=== PATIENT | female | born 1980 | race Caucasian/White ===

== ENCOUNTER → 2016-12-13 | Outpatient (CLI) | payer OTHER ==
[~2016-12-13] MED LIST: IBUP-1114 PO
--- NOTE | 2016-12-13 12:47 | REP ---
REASON: Assess for IUD placement. PRIORS: None. Transvesical and transvaginal imaging was obtained. The uterus measures 9.7 x 5.1 x 7. 1 cm. The parenchymal echo pattern is within normal limits. Within the uterus, there is a specular reflection consistent with an IUD. Incidental note is made of the nabothian cyst. Right ovary measures 2.9 x 1.8 x 2.2 cm and is within normal limits. Left ovary measures 2.3 x 1.4 x 1.9 cm and is within normal limits. The urinary bladder measures 7 x 6 x 8 cm. IMPRESSION: There is an IUD in place. The exam is unremarkable. Signed by Juve Yung DO 12/13/2016 01:58 P
== END ==
LOC: M RAD 11:13
PROVIDERS: ATTEND Student in an Organized Health Care Education/Training Program
DX: Z30.431 Encounter for routine checking of intrauterine contraceptive device (principal)

== ENCOUNTER 2017-01-15 10:22 | Day surgery (SDC) | payer OTHER ==
[~2017-01-15] VITALS: Ht 167.6 cm; Wt 88.5 kg
[~2017-01-15 10:22] MED LIST changes: +LR 1,000 ML IV ONE
[2017-01-15 11:07] LABS: MEAN CORPUSCULAR HEMOGLOBIN 32.7 pg (27.0-33.0); MEAN CORPUSCULAR HGB CONC 35.4 g/dl (32.0-36.5); MEAN CORPUSCULAR VOLUME 92.5 fl (80.0-96.0); RED CELL DISTRIBUTION WIDTH 11.6 % (11.5-14.5); WHITE BLOOD COUNT 4.5 K/mm3 (4.0-10.0)
[2017-01-15 11:18] LABS: CONTROL LINE HCG INT CTR LINE PRESENT
[2017-01-15] MEDS ORDERED: LIDOCAINE 2% INJ 100 MG/5 ML SDV (FOR ANES.) As Ordered ONE (11:51)
[2017-01-15] MEDS ORDERED: MIDAZOLAM INJ 2 MG/2 ML VIAL (J2250) As Ordered ONE (11:51)
[2017-01-15] MEDS ORDERED: PROPOFOL 200 MG/20 ML VIAL As Ordered ONE (11:51)
[2017-01-15] MEDS ORDERED: fentaNYL 100 MCG/2 ML INJECTION (J3010) As Ordered ONE (11:51)
[2017-01-15] MEDS ORDERED: ONDANSETRON 4MG/2ML VIAL (J2405) As Ordered ONE (11:55)
[2017-01-15] MEDS ORDERED: KETOROLAC 60 MG/2 ML VIAL (J1885) As Ordered ONE (11:55)
[2017-01-15] MEDS ORDERED: ONDANSETRON 4MG/2ML VIAL (J2405) IV PRN (14:00)
[2017-01-15] MEDS ORDERED: NORCO, ANEXSIA 5/325MG TABLET (HYDROcodone/ACETAMINOPHEN) PO PRN (14:00)
[2017-01-15] MEDS ORDERED: fentaNYL 100 MCG/2 ML INJECTION (J3010) IV PRN (14:00)
[2017-01-15] MEDS ORDERED: LR 1,000 ML IV SCH (14:00)
[2017-01-15 14:05] VITALS: BP 125/78
--- NOTE | 2017-01-16 06:15 | RO ---
DATE OF PROCEDURE: 01/15/2017 PREPROCEDURE DIAGNOSIS: Retained intrauterine device (IUD). POSTPROCEDURE DIAGNOSIS: Retained intrauterine device (IUD). PROCEDURE: Operative hysteroscopy with manual removal of previously placed Mirena IUD, placement of new Mirena IUD and evaluation of uterus. SURGEON: Dr. Dixon Barrett. SUPERVISOR BLUEPRINTING AND PHOTOCOPY: None. ANESTHESIA: Kendy, BALANCE SCREWHEAD POLISHER sedation IV FLUIDS: 600 mL. URINE OUTPUT: 25 mL. ESTIMATED BLOOD LOSS: Less than 5. INDICATION FOR SURGERY: Patient is a 36-year-old G3, P2 with an IUD Mirena placed previously with attempted removal times two in clinic without success. Patient was extensively counseled and consented for risks/benefits/alternatives/indications to removal of IUD hysteroscopically with operative evaluation as well as placement of new Mirena IUD. Patient was taken to the operating room where IV sedation was obtained without difficulty. She was prepped and draped in normal sterile fashion in a dorsal supine position in low lithotomy. After time out was performed, a sterile speculum was placed into the patient's vagina and the cervix was visualized. The single tooth tenaculum was used to grasp the anterior lip of the cervix. Using the Parkin grasper, one further attempt was made to remove the IUD without success. After hysteroscope was primed and prepped in routine fashion, was placed into the patient's cervix and advanced to the uterine fundus. At this time noted the IUD within the uterine canal with the IUD strings wrapped around the body as well as the T-aspect. The IUD was grasped with hysteroscopic graspers and removed with hysteroscope without complications. This IUD was then sent for evaluation. Hysteroscope was then replaced back into the cervix and advanced to the uterine fundus with no abnormality noted to the uterine contents with both ostia visualized without issues. Hysteroscopy was then removed. Total fluid deficit 75 mL. The uterus was then sounded to 9 cm and a Mirena IUD was placed without complication, the strings cut to 4 cm per manufactures guideline. All instruments were removed. Hemostasis was noted. The single tooth tenaculum was removed without issues. Manual vaginal sweep demonstrated no retained objects as well as hemostasis. Sponge, lap, needle counts correct times two. Patient was taken to the postanesthesia care unit in stable condition. No indication for antibiotics for this case. Flaco Barrett OB-CHEMICAL STRENGTH TESTER MTDD
== END 2017-01-15 14:40 | disposition home or self-care (01) ==
LOC: M SDC 10:22
PROVIDERS: ATTEND Student in an Organized Health Care Education/Training Program
DX: T83.39XA Other mechanical complication of intrauterine contraceptive device, initial encounter (principal); Z30.433 Encounter for removal and reinsertion of intrauterine contraceptive device
CPT/HCPCS: 36415; 58300; 58562; 84703; 85027; 86850; 86900; 86901; 88300; J1885; J2250; J2405; J3010; J7298

== ENCOUNTER → 2018-11-19 | Outpatient (CLI) | payer OTHER ==
[~2018-11-19] MED LIST changes: -LR 1,000 ML IV ONE
--- NOTE | 2018-11-19 15:57 | REP ---
BILATERAL MAMMOGRAM WITH RIGHT BREAST ULTRASOUND: No family history of breast cancer. Tyrer-zick lifetime risk of breast cancer 10.9%. Patient complains of intermittent pain outer right breast for the past 4 months. This is a baseline study with no priors for comparison. MLO and CC views of bilateral breasts demonstrate moderate fibroglandular tissue bilaterally in a fairly symmetrical pattern. No mass or architectural distortion is seen. No clustered microcalcifications are seen. There are small axillary lymph nodes bilaterally. Real-time sonographic evaluation of the outer right breast is performed in the region of the reported breast pain. Near the nipple at 7 o'clock there is an oval hypoechoic area which appears to be in a dilated duct. This oval nodule measures 10 x 3 x 10 mm. There does appear to be some degree of internal blood flow with Doppler evaluation. Otherwise dense fibroglandular tissue was seen throughout the lateral aspect of the right breast. IMPRESSION: BIRADS 4: BI-RADS/ACR category 4 mammogram. Suspicious Abnormality - biopsy should be considered. No mammographic abnormalities are seen. However by ultrasound, in the 7 o'clock region of the right breast near the nipple is an oval hypoechoic nodule which appears to be an dilated duct measuring 10 x 3 x 10 mm. Intraductal neoplasm cannot be excluded. Recommend ultrasound guided biopsy. This mammogram was interpreted with the aid of an FDA-approved computer-aided detection system. The patient states he/she had a clinical breast exam in 10/2018. The patient letter being requested is M4. Electronically Signed by Apollo Gottlieb MD 11/21/2018 10:27 A
== END ==
LOC: M RAD 13:57
PROVIDERS: ATTEND Family Medicine
DX: Z12.31 Encounter for screening mammogram for malignant neoplasm of breast (principal); N63.13 Unspecified lump in the right breast, lower outer quadrant

== ENCOUNTER → 2018-12-17 | Outpatient (CLI) | payer OTHER ==
[~2018-12-17] MED LIST changes: +LIDOCAINE 1% MDV 20ML VIAL As Ordered ONE
[2018-12-17 12:06] VITALS: BP 138/89
--- NOTE | 2018-12-17 12:40 | REP ---
POST BIOPSY MAMMOGRAM, RIGHT BREAST: ML and CC views of right breast performed status post ultrasound guided biopsy of a nodule at 7-o'clock position identified on prior ultrasound of 11/19/2018. A metallic clip is seen in the 7 -o'clock region of the right breast, marking the site of the biopsy. Electronically Signed by Apollo Gottlieb MD 12/17/2018 01:20 P
--- NOTE | 2018-12-17 15:41 | REP ---
Ultrasound-guided right breast biopsy. The procedure was performed by BIPIN Gil, under the direct supervision of Dr. Gottlieb. The patient has a history of hypoechoic oval nodule measuring 10 x 3 x 10 mm at the 7 o'clock position in the right breast on an ultrasound dated 11/19/2018. The risks and benefits of the procedure were explained to the patient and informed consent was obtained both verbally and written. Directly prior to the start of the procedure, a formal timeout was completed in the procedure room. The right breast mass was localized using ultrasound guidance. The skin was prepped and draped in a sterile fashion. 10 ml 1% lidocaine was used as a local anesthetic. Using ultrasound guidance a 13-gauge suction assisted Mammotome needle was inserted and 5 core biopsy samples were obtained. A marker clip was placed at the biopsy site. The patient tolerated the procedure well and there were no immediate complications. After the appropriate monitored convalescence the patient was discharged from the department. Reviewed by BIPIN Crespo 12/17/2018 01:06 P Electronically Signed by Apollo Gottlieb MD 12/17/2018 03:31 P
== END ==
LOC: M IRPRO 09:43
DX: N60.11 Diffuse cystic mastopathy of right breast (principal)

== ENCOUNTER → 2021-11-17 | Outpatient (REF) | payer OTHER ==
[~2021-11-17] MED LIST changes: -LIDOCAINE 1% MDV 20ML VIAL As Ordered ONE
== END ==
LOC: M LAB REF 17:05
PROVIDERS: ATTEND Internal Medicine
DX: R30.0 Dysuria (principal)